=== PATIENT | female | born 1980 | race Caucasian/White ===

== ENCOUNTER 2018-01-13 10:21 | Emergency (ER) | payer OTHER, MEDICARE ==
[~2018-01-13] VITALS: Ht 154.9 cm; Wt 72.6 kg
[2018-01-13] MEDS ORDERED: VIMPAT100 M1 PO (11:41)
[2018-01-13] MEDS ORDERED: GABAPENTIN300 M2 PO (11:41)
[2018-01-13] MEDS ORDERED: LAMOTRIGINE100 M2 PO (11:41)
[2018-01-13] MEDS ORDERED: ZOLOFT50 M1 PO (11:42)
[2018-01-13] MEDS ORDERED: ONFI10 M1 PO (11:42)
[2018-01-13] MEDS ORDERED: ATIVAN0.5 M1 PO (11:43)
[2018-01-13] MEDS ORDERED: CLOBETASOL PROP15 GM TOP (11:43)
[2018-01-13] MEDS ORDERED: NAPROSYN500 M1 PO (11:57)
--- NOTE | 2018-01-13 12:01 | ED GENERAL ADULT ---
History of Present Illness General Chief Complaint: Fall Stated Complaint: FALL IN SHOWER, DIZZY, NECK PAIN, LEG PAIN Source: patient Exam Limitations: no limitations Vital Signs & Intake/Output Vital Signs & Intake/Output Vital Signs Date Time Temp Pulse Resp B/P B/P Pulse O2 O2 Flow FiO2 Mean Ox Delivery Rate 01/13 1215 98.2 88 17 113/71 95 Room Air 01/13 1213 Room Air 01/13 1025 98.1 103 20 124/82 96 Room Air Allergies Coded Allergies: Sulfa (Sulfonamide Antibiotics) (UNKNOWN 01/13/18) Reconcile Medications Clobazam (ONFI) 10 MG TABLET 1 TAB PO BID UNKNOWN (Reported) Clobetasol Propionate 0.05 % CREAM..G. 1 MAURILIO TOP BID ECZEMA (Reported) apply to affected area(s) Gabapentin 300 MG CAPSULE 1 CAP PO BID EPILIPSY (Reported) Lacosamide (Vimpat) 100 MG TABLET 2 TAB PO BID EPILEPSY (Reported) Lamotrigine 100 MG TABLET 3 TAB PO BID EPILEPSY (Reported) Lorazepam (Ativan) 0.5 MG TABLET 1 TAB PO BIDP PRN SEIZERS (Reported) Naproxen (Naprosyn) 500 MG TABLET 1 TAB PO BID PRN pain Sertraline HCl (Zoloft) 50 MG TABLET 1 TAB PO BID MENTAL HEALTH (Reported) Triage Note: PT TO ED C/O ANTERIOR NECK PAIN S/P SLIP AND FALL IN THE SHOWER THIS AM. UNSURE IF HEAD STRIKE OR LOC. PT WITH H/O EPILEPSY. C/O NAUSEA AND FEELING TIRED. PT HAS BASELINE TREMORS. Triage Nurses Notes Reviewed? yes Onset: Abrupt Duration: hour(s): Timing: single episode today : No Patient currently breastfeeds: No HPI: 37-year-old female with a history of MS, epilepsy, RA presenting with neck pain status post mechanical trip and fall this morning while in the shower. Reports she was in the shower and slipped, fell forward onto her right side, and struck left knee on the way down. States she is not 100% positive whether or not she struck her head, but does not think she did. There was no loss of consciousness. She had mild nausea earlier that has since self resolved. Denies any vomiting. Denies headache or visual changes. Family members at the bedside and denies any mental status changes. States that she did not strike her neck, but had twisted it to the right on the way down. Denies numbness or paresthesias to the extremities. Patient is certain that she did not seize this morning. (Quita Wahl) Past History Travel History Traveled to [place] past 21 day No Medical History Any Pertinent Medical History? see below for history Neurological: multiple sclerosis, epilepsy Musculoskeletal: rheumatoid arthritis Surgical History Surgical History: non-contributory Psychosocial History Who do you live with Significant Other What is your primary language Brazilian Tobacco Use: Quit >30 days ago ETOH Use: denies use Illicit Drug Use: denies illicit drug use Family History Hx Contributory? No (Quita Wahl) Review of Systems Review of Systems Constitutional: Reports: no symptoms. EENTM: Reports: no symptoms. Respiratory: Reports: no symptoms. Cardiovascular: Reports: no symptoms. GI: Reports: no symptoms. Genitourinary: Reports: no symptoms. Musculoskeletal: Reports: see HPI. Skin: Reports: no symptoms. Neurological/Psychological: Reports: no symptoms. Hematologic/Endocrine: Reports: no symptoms. Immunologic/Allergic: Reports: no symptoms. All Other Systems: Reviewed and Negative (Quita Wahl) Physical Exam Physical Exam General Appearance: well developed/nourished, no apparent distress, alert, awake Comments: Primary Survey: Airway: intact Breathing: breath sounds equal bilaterally Circulation: 2+ distal pulses Disability: a&ox3, pupils equally round and reactive Secondary Survey: Head: Normocephalic, atraumatic, nontender, no skull depressions/deformities Ears: No hemotympanum Nose: No epistaxis or septal hematomas Throat/mouth : No oral lacerations, no missing teeth Face: No abrasions/lacerations, no crepitus or deformities Neck: No midline TTP, unrestricted c-spine ROM, mild bilateral paraspinal tenderness of the C-spine Heart: Regular rate and rhythm Lungs: Clear to auscultation bilaterally with normal air entry Chest: Nontender, no flail segments Abdomen: Soft, nontender, nondistended, normal bowel sounds Pelvis: Non-tender and stable to AP and lateral compression Extremities: Normal range of motion of all joints, no abrasions/lacerations, able to bear weight and ambulate with a steady gait Neurologic: Cranial nerves grossly intact, no motor/sensory deficitis, cerebellalr function intact Skin: warm and dry and without ecchymoses or abrasions Back: No midline TTP of T-spine or L-spine Rectal exam: deferred Core Measures ACS in differential dx? No CVA/TIA Diagnosis: No Sepsis Present: No Sepsis Focused Exam Completed? No (Quita Wahl) Progress Differential Diagnoses I considered the following diagnoses in my evaluation of the patient: [Left knee contusion, low concern for fracture versus dislocation. Likely with cervical sprain versus cervical strain, low concern for vertebral fracture versus ICH versus seizure.] Plan of Care: No indication for CT head based on [place] head CT criteria. No indication for CT C-spine based on Nexus criteria. No indication for knee x-ray at this time, there is low concern for fracture, benign knee exam with unrestricted range of motion and no pain with weightbearing and ambulation. Likely with cervical strain and knee contusion. Given Rx naproxen. Counseled on supportive care and strict return precautions. Initial ED EKG: none (Quita Wahl) Departure Departure Disposition: HOME OR SELF CARE Condition: Stable Clinical Impression Primary Impression: Neck pain Secondary Impressions: Contusion of left knee, Fall Referrals: Patient Has No Primary Care Dr (PCP/Family) Additional Instructions: Use naproxen as needed for pain. Follow-up with your primary care provider for reevaluation. Return to the emergency department for any new or worsening symptoms. Departure Forms: Customer Survey General Discharge Information Prescriptions: Current Visit Scripts Naproxen (Naprosyn) 1 TAB PO BID PRN pain #60 TAB (Quita Wahl) PA/SR. [employer]NA[employer] Co-Sign Statement Statement: ED Attending supervision documentation- [] I saw and evaluated the patient. I have also reviewed all the pertinent lab results and diagnostic results. I agree with the findings and the plan of care as documented in the PA's/SR. [employer]'s documentation. [x] I have reviewed the ED Record and agree with the PA's/SR. [employer]'s documentation. [] Additions or exceptions (if any) to the PAs/SR. DIRECT[employer]NAG[employer]'s note and plan are summarized below: [] (Kirti CLINTON, Saul) Critical Care Note Critical Care Note Critical Care Time: non-applicable (Quita Wahl)
[2018-01-13 12:15] VITALS: BP 113/71
== END 2018-01-13 12:16 ==
LOC: ERH 10:21
DX: S80.02XA Contusion of left knee, initial encounter (principal); M54.2 Cervicalgia; W18.2XXA Fall in (into) shower or empty bathtub, initial encounter; Y92.9 Unspecified place or not applicable; Y93.9 Activity, unspecified; G35 Multiple sclerosis; G40.909 Epilepsy, unspecified, not intractable, without status epilepticus